=== PATIENT | male | born 1955 | race Caucasian/White ===

== ENCOUNTER → 2018-03-19 | Outpatient (CLI) | payer BC ==
--- NOTE | 2018-03-19 14:32 | RADIOLOGY REPORT (SQ) ---
EXAM DESCRIPTION: HIP LEFT AP/LATERAL COMPLETED DATE/TIME: 03/19/2018 12:48 pm REASON FOR STUDY: PAIN OF LEFT HIP JOINT (PLS REVIEW WITH NM BONE SCAN 03/19/2018) M25.552 PAIN IN L EFT HIP COMPARISON: None. NUMBER OF VIEWS: Two views. TECHNIQUE: AP frog-leg view of the left hip. LIMITATIONS: None. FINDINGS: Normal bone density. There is degenerative change at the SI joint with joint space narrowing bony sclerosis. A subcortica l cyst is present along the lower 3rd of the SI joint. This area is hot on bone scan. Left hip joint is normal. No bony spurring or joint space narrowing. No left proximal femoral fract ure or fracture in the left hemipelvis. Left L5-S1 facet arthropathy is present. This is also hot on bone scan. 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
--- NOTE | 2018-03-19 14:35 | RADIOLOGY REPORT (SQ) ---
EXAM DESCRIPTION: NM 3 PHASE BONE SCAN COMPLETED DATE/TIME: 03/19/2018 12:21 pm REASON FOR STUDY: PAIN IN LEFT HIP M25.552 PAIN IN LEFT HIP COMPARISON: Left hip films two views same date RADIONUCLIDE AND DOSE: 19.5 millicuries Tc99m MDP. The route of agent administration: Intravenous. ADDITIONAL DRUGS AND DOSES: None. TECHNIQUE: Following injection of the radiopharmaceutical, serial blood flow images acquired. Equil ibrium blood pool images then acquired. Routine delayed images at 3 hours acquired of the areas of c linical concern with additional focused images as needed. Whole-body delayed images at 3 hours were obtained. AREA OF INTEREST: Left hip LIMITATIONS: None. FINDINGS: VASCULAR FLOW IMAGES: No asymmetry or focal areas of hyperemia. BLOOD POOL IMAGES: No asymmetry or focal areas of soft-tissue hyper-perfusion. BONES: On the delayed images the pelvis and today's whole body images, there is increased uptake at t he inferior aspect of the left SI joint which correlates with arthritis on plain films. There is also increased uptake at the right L4-5 or L5-S1 facet joint, likely from osteoarthritis. No increased uptake over the left femur or hemipelvis worrisome for radiographically occult fracture. Delayed images demonstrate punctate focus of increased uptake at the right anterior 7th rib which cou ld represent costochondral cartilage -rib inflammation. There is diffuse increased uptake over the l eft shoulder likely from arthritis. Minimal increased uptake at both knees from arthritis. KIDNEYS: Symmetric excretion without obstruction. OTHER: No other significant finding. IMPRESSION: Increased uptake over the lower 3rd left SI joint correlates with arthritis on plain [place] ms. This would be amenable to SI joint steroid injection for pain control COMMENT: Quality measure 147: Current bone scan is compared with any available plain radiographs, p rior bone scans, and CT/MRI. TECHNICAL DOCUMENTATION: JOB ID: [id number] [employer]- All Rights Reserved Reading location - IP/workstation name: [email or web address]
== END ==
LOC: RAD 08:03
PROVIDERS: ATTEND Family Medicine
DX: M25.552 Pain in left hip (principal)
CPT/HCPCS: 73502; 78315; A9561; Q9969